=== PATIENT | female | born 1955 | race Caucasian/White ===

== ENCOUNTER 2016-08-10 17:51 | Emergency (ER) | payer OTHER ==
[2016-08-10] MEDS ORDERED: DIPHENHYDRAMINE 50 MG/ML VIAL ONE (19:28)
[2016-08-10] MEDS ORDERED: MORPHINE 10 MG VIAL ONE (19:28)
[2016-08-10] MEDS ORDERED: METHYLPRED SOD SUCC 125 MG/2 ML VIAL ONE (19:29)
[2016-08-10] MEDS ORDERED: SODIUM CHLORIDE 0.9% 1,000 ML ONE (22:21)
[2016-08-11] MEDS ORDERED: KETOROLAC 30 MG/ML VIAL ONE
== END 2016-08-11 02:08 | disposition home or self-care (01) ==
LOC: ER 17:51
CPT/HCPCS: 36415; 70450; 70490; 71010; 80053; 81001; 82553; 83735; 84484; 85025; 85610; 85730; 87088; 93005; 96361; 96374; 96375